=== PATIENT | female | born 2000 | race Caucasian/White ===

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

== ENCOUNTER 2022-06-08 17:56 | Emergency (ER) | payer MEDICAID, SELFPAY ==
[2022-06-08 17:57] VITALS: BP 136/67; PULSE 73; RESP 16; TEMP 36.7; O2SAT 96; BMI 25.7
--- NOTE | 2022-06-08 18:09 | US_ITS ---
EXAM: US , TRANSVAGINAL CLINICAL INDICATION: vaginal bleeding and 1st trimester TECHNIQUE: Real-time transvaginal obstetrical ultrasound of the maternal pelvis and a first trimester with image documentation. Transvaginal imaging was used for better evaluation of the fetus and adnexa. This report was created using kajeet report generation technology. COMPARISON: None. FINDINGS: GESTATION: There is no intrauterine gestation. PLACENTA/AMNIOTIC FLUID: There is no intrauterine gestation. UTERUS/CERVIX: Uterus measures 7.2 x 4.1 x 5.0 cm. The endometrium measures 8 mm. No myometrial mass. OVARIES: The right ovary measures 4.1 x 2.7 x 2.7 cm. The left ovary measures 3.6 x 1.7 x 2.9 cm. No mass. FREE FLUID: There is free fluid in the pelvis. US/Transvaginal w/Preg US IMPRESSION: Free fluid within the pelvis. No other abnormalities are identified. There is no intrauterine gestation. Electronically Signed: Arnold Cote MD at 19:40 EST ,
--- NOTE | 2022-06-08 18:10 | EDS_ITS ---
HPI HPI - Female History of Present Illness Chief Complaint: Vag Bld, Preg Detail of Chief Complaint: Approximately 6 weeks with vaginal bleeding tonight. Mild crampin Informant: patient Pain Pain: Positive for Pelvic Pain Onset: Today Context: Gradual Onset Timing: Intermittent Quality: Positive for Cramping Current Severity: Gone Maximum Severity: Mild Bleeding Issue: Positive for Vaginal bleeding and Passing clots; Negative for Passing tissue Onset: Today Context: Gradual Onset Timing: Intermittent Current Severity: Similar to period Maximum Severity: Similar to period Associated Symptoms Associated Symptoms: Negative for Dysuria or Frequency Test: Positive Sexually: Positive for Active Control: No control P: 1 Ab: 0 Narrative Narrative: 22-year-old female G2, P1 Ab0. Blood type so positive. States about 6 weeks . Started having vaginal bleeding today similar to a menstrual cycle. Clots. Only mild cramping. Currently no pain. No dysuria. No discharge. No fever. She is never had an ectopic. Denies any recent illness or hospitalization. She has had no care as of yet for this . Prior similar symptoms: No Recent Illness/Hospitalization: No PFSH PFSH Medical History (Updated 06/08/22 @ 20:[address] Blaine Dodd MD) IBS (irritable bowel syndrome) Ovarian cyst Home Medications acetaminophen 325 mg tablet (Tylenol) 650 mg PO Q4H PRN PRN Pain Or Fever #0 tabs 11/29/21 [Rx Last Taken Unknown] oxycodone 5 mg tablet 5 mg PO Q4H PRN PRN Pain Score 4-10/10 5 days #14 tabs 11/29/21 [Rx Last Taken Unknown] Allergy/AdvReac Type Severity Reaction Status Date / Time No Known Allergies Allergy Verified 06/08/22 17:58 Surgical History (Updated 06/08/22 @ 18:40 by Barbara Jaquez) History of appendectomy Social History Smoking Status: Never smoker substance use type: does not use ROS ROS ED ROS Narrative Vaginal bleeding. Loose stools. Review of Systems ROS Unobtainable: Denies due to encephalopathy Constitutional Constitutional ED: Denies chills or fever(s) Eyes Eyes: Denies blurry vision ENT ENT ED: Denies ear pain Cardiovascular Cardiovascular: Denies chest pain Respiratory/Chest Respiratory/Chest: Denies cough Gastrointestinal Gastrointestinal: Reports diarrhea; Denies abdominal pain Genitourinary Genitourinary ED: Denies dysuria or hematuria Musculoskeletal Musculoskeletal: Denies arthralgias Integumentary Denies abscess Neurologic Neurologic: Denies headache(s) Psychiatric Psychiatric: Denies anxiety Endocrine Endocrinology: Denies heat intolerance Hematologic/Lymphatic Hematologic/Lymphatic: Denies easy bleeding Allergic/Immunologic Allergic/Immunologic ED: Denies mouth swelling EXAM Physical Exam Narrative Exam Narrative: Well-appearing 22-year-old female. Vital signs stable afebrile. Clinically looks well. Significant other at bedside. HEENT exam normal. Lungs clear. Heart regular rhythm rate about 70 no murmur. Abdomen soft, nontender, nondistended normal bowel sounds no peritoneal signs. No suprapubic tenderness. Moving all 4 extremities. Calves are nontender without edema or cords. Neurologically she is awake and alert with no focal motor deficits. Very benign exam. Const Vital Signs: 06/08/22 17:57 Temperature 98.1 F Temperature Source Temporal Pulse Rate 73 Respiratory Rate 16 Blood Pressure 136/67 H Blood Pressure Mean 90 Pulse Ox 96 Oxygen Delivery Method Room Air Positive well nourished and well developed; Negative for obese, cachectic, contractures or unkempt General Appearance ED: well developed and NAD; Negative for unkempt, cachectic, contractures, odor of alcohol detected or pallor Nutritional Appearance: Negative for cachectic or obese HEENT Reports moist mucous membranes Negative for trauma or tenderness Eyes PERRL and EOMs intact bilaterally General Eye ED: Negative for pale conjunctiva or scleral icterus Neck no lymphadenopathy, supple and no JVD General: Negative for other Thyroid: Negative for tender Chest Wall inspection of chest normal and palpation of chest normal Chest: Negative for other Resp normal respiratory effort and clear to auscultation bilaterally Effort and Inspection: Negative for pain with movement Auscultation: Negative for rales, rhonchi or wheezes Cardio regular rate, regular rhythm, S1 normal heart sound, no murmurs and no JVD Rate: Negative for bradycardia Rhythm: Negative for abnormal rhythm GI normal to inspection, nondistended, normoactive bowel sounds, soft to palpation, non-tender, non-distended and no masses Auscultation: normoactive bowel sounds Palpation: Negative for tender, guarding or rigid Back/Spine no CVA tenderness General Back: Negative for CVA tenderness Cervical Spine: Negative for cervical spine tenderness Thoracic Spine / Upper Back: Negative for thoracic spinal tenderness Lumbar Spine / Lower Back: Negative for lumbar spinal tenderness Sacrum: Negative for other Extremity normal to inspection and full ROM General Extremety ED: Negative for edema or tenderness General Extremity: Negative for edema Neuro oriented x3 and CN's II-XII intact bilaterally Sensorium / Orientation: alert, oriented to person, oriented to place and oriented to time; Negative for confused, lethargic or stuporous Psych mental status grossly normal Appearance: Negative for unkempt Attitude: No agitated Speech: No other Mood & Affect: Negative for depressed, anxious or tearful Skin no rashes or lesions noted and no wounds General Skin Exam: Negative for jaundice or pallor Rashes: No rashes noted MDM MDM MDM Narrative Medical decision making narrative: 22-year old female G2, P1 Ab0. Think she is about 6 weeks . Has had no care. Today had cramping and bleeding. Her blood type in the past is O+ when I reviewed her prior medical records. We will obtain a quant and a pelvic ultrasound. Clinically she does not have an ectopic at least not by exam she is nontender and is having no pain. Currently she needs nothing for pain. She is not lightheaded. She has normal vital signs. Repeat exam at 8:10 PM patient doing well. Abdomen benign. She has had no further bleeding. She deferred pelvic exam. They will follow-up with her MARKETING RESEARCH INTERN this week. We discussed threatened miscarriage versus completed miscarriage versus just an early that she has had some vaginal bleeding. She can follow-up with her MARKETING RESEARCH INTERN office in [place] this week have a repeat quant and further testing is needed. Lab Data Attestation: I reviewed the patient's lab results. Lab results narrative: Quant is only 77. With the ultrasound results it appears the patient's had a miscarriage. Labs: Laboratory Results - last 24 hr 06/08/22 18:15 HCG, Quant 77 H Radiography Diagnostic Testing: Clinical Impression(s) from Imaging Studies Obstetrics Ultrasound 06/08/22 18:09 IMPRESSION: Free fluid within the pelvis. No other abnormalities are identified. There is no intrauterine gestation. Electronically Signed: Arnold Cote MD at 19:40 EST , Discharge Plan Triage Chief Complaint: Vag Bld, Preg ED Provider: Blaine Dodd Dx/Rx/DC Orders Clinical Impression: Threatened miscarriage, Hemorrhage of in first trimester Instructions: ED Possible Miscarriage ... Prescriptions: No Action oxycodone 5 mg Tablet 5 mg PO Q4H PRN PRN (Reason: Pain Score 4-10/10) 5 Days Qty: 14 0RF acetaminophen [Tylenol] 325 mg Tablet 650 mg PO Q4H PRN PRN (Reason: Pain Or Fever) Qty: 0 0RF Primary Care Provider: Care PhysicianVianey Primary Referrals: NOT,DEFINED [Non-Staff] - Activity Restrictions/Additional Instructions: Follow-up with your MARKETING RESEARCH INTERN this week. They can check another serum quantitative hCG and reevaluate you. I suspect you had a early miscarriage there is a possibility that you are still and is just too early to see anything on the ultrasound. You may have some additional bleeding if it is heavy or there is clot you are having severe pain or fever you need to be re- evaluated. Tylenol for pain. Plenty of fluids and rest. Disposition Disposition: Home, Self Care
[2022-06-08 18:41] LABS: hCG Titer Quant., Serum 77 mIU/mL (1-3)
--- NOTE | 2022-06-08 20:20 | EDS_ITS ---
HPI HPI - Female History of Present Illness Chief Complaint: Vag Bld, Preg PFSH PFSH Medical History (Updated 06/08/22 @ 20:[address] Blaine Dodd MD) IBS (irritable bowel syndrome) Ovarian cyst Home Medications acetaminophen 325 mg tablet (Tylenol) 650 mg PO Q4H PRN PRN Pain Or Fever #0 tabs 11/29/21 [Rx Last Taken Unknown] oxycodone 5 mg tablet 5 mg PO Q4H PRN PRN Pain Score 4-10/10 5 days #14 tabs 11/29/21 [Rx Last Taken Unknown] Allergy/AdvReac Type Severity Reaction Status Date / Time No Known Allergies Allergy Verified 06/08/22 17:58 Surgical History (Updated 06/08/22 @ 18:40 by Barbara Jaquez) History of appendectomy Social History Smoking Status: Never smoker substance use type: does not use EXAM Physical Exam Const Vital Signs: 06/08/22 17:57 Temperature 98.1 F Temperature Source Temporal Pulse Rate 73 Respiratory Rate 16 Blood Pressure 136/67 H Blood Pressure Mean 90 Pulse Ox 96 Oxygen Delivery Method Room Air [facility] Lab Data Labs: Laboratory Results - last 24 hr 06/08/22 18:15 HCG, Quant 77 H Radiography Diagnostic Testing: Clinical Impression(s) from Imaging Studies Obstetrics Ultrasound 06/08/22 18:09 IMPRESSION: Free fluid within the pelvis. No other abnormalities are identified. There is no intrauterine gestation. Electronically Signed: Arnold Cote MD at 19:40 EST , Discharge Plan Triage Chief Complaint: Vag Bld, Preg ED Provider: Blaine Dodd Dx/Rx/DC Orders Clinical Impression: Threatened miscarriage, Hemorrhage of in first trimester Instructions: ED Possible Miscarriage ... Prescriptions: No Action oxycodone 5 mg Tablet 5 mg PO Q4H PRN PRN (Reason: Pain Score 4-10/10) 5 Days Qty: 14 0RF acetaminophen [Tylenol] 325 mg Tablet 650 mg PO Q4H PRN PRN (Reason: Pain Or Fever) Qty: 0 0RF Primary Care Provider: Care Physician,No Primary Referrals: NOT,DEFINED [Non-Staff] - Activity Restrictions/Additional Instructions: Follow-up with your ANIMAL RESCUER this week. They can check another serum quantitative hCG and reevaluate you. I suspect you had a early miscarriage there is a possibility that you are still and is just too early to see anything on the ultrasound. You may have some additional bleeding if it is heavy or there is clot you are having severe pain or fever you need to be re- evaluated. Tylenol for pain. Plenty of fluids and rest. Disposition Disposition: Home, Self Care
== END 2022-06-08 20:38 | disposition home or self-care (01) ==
PROVIDERS: Emergency Provider Emergency Medicine; Visit Provider Emergency Medicine
DX: O20.0 Threatened abortion (principal); Z3A.01 Less than 8 weeks gestation of pregnancy; O26.891 Other specified pregnancy related conditions, first trimester
CPT/HCPCS: 76817; 84702; 99282; A4216

== ENCOUNTER 2023-03-28 19:04 | Emergency (ER) | payer MEDICAID, SELFPAY ==
[2023-03-28 19:05] VITALS: BP 131/82; PULSE 86; RESP 14; TEMP 36.2; O2SAT 98; BMI 24.7
--- NOTE | 2023-03-28 19:30 | EDS_ITS ---
HPI History of Present Illness Chief Complaint: Rash Detail of Chief Complaint: Rash Informant: patient Narrative Narrative: Patient presents the emergency department with complaint of a rash that she has had for over 2 weeks. Patient states that she is about 23 weeks . She is G3, P1. Patient denies any new soaps or detergents or other allergens. She tells me that her [employer]IED [employer] thought it might be PUPPS. Patient denies fever or recent illness. Rash is very itchy. Rashes on the hands as well as her wrists and chest. Patient has been using hydrocortisone cream without relief. She is having hard time sleeping at night because of the itching. Patient denies any new medications. [facility] Medical History (Updated 03/28/23 @ 19:[address] Dionna Garcia DO) IBS (irritable bowel syndrome) Ovarian cyst Home Medications acetaminophen 325 mg tablet (Tylenol) 650 mg (2 x 325 mg) PO Q4H PRN PRN Pain Or Fever #0 tabs 11/29/21 [Rx Last Taken Unknown] oxycodone 5 mg tablet 5 mg PO Q4H PRN PRN Pain Score 4-10/10 5 days #14 tabs 11/29/21 [Rx Last Taken Unknown] hydroxyzine HCl 25 mg tablet 25 mg PO Q8H PRN itching #20 tabs 03/28/23 [Rx Last Taken Unknown] prednisone 20 mg tablet 20 mg PO BID #10 tabs 03/28/23 [Rx Last Taken Unknown] Allergy/AdvReac Type Severity Reaction Status Date / Time No Known Allergies Allergy Verified 03/28/23 19:06 Surgical History History of appendectomy Social History Smoking Status: Never smoker substance use type: does not use ROS ROS ED Review of Systems ROS Unobtainable: other Constitutional Constitutional ED: Reports lethargy; Denies chills, fever(s), sweats or weight loss Eyes Eyes: Denies blurry vision, change in vision or diplopia ENT ENT ED: Denies rhinorrhea or sore throat Cardiovascular Cardiovascular: Denies chest pain, orthopnea or racing heartbeat Respiratory/Chest Respiratory/Chest: Denies cough, dyspnea, dyspnea on exertion, orthopnea or sputum Gastrointestinal Gastrointestinal: Denies abdominal pain, diarrhea, nausea or vomiting Genitourinary Genitourinary ED: Denies dysuria, hematuria or urinary frequency Musculoskeletal Musculoskeletal: Denies arthralgias, back pain, myalgias or neck pain Integumentary Reports rash; Denies abscess or Abrasions Neurologic Neurologic: Denies headache(s) or weakness Psychiatric Psychiatric: Denies anxiety, depression or suicidal thoughts Endocrine Endocrinology: Denies polydipsia, polyphagia or polyuria Hematologic/Lymphatic Hematologic/Lymphatic: Denies easy bleeding, easy bruising or lymphadenopathy Allergic/Immunologic Allergic/Immunologic ED: Denies mouth swelling, tongue swelling or urticaria EXAM Physical Exam Const Vital Signs: 03/28/23 19:05 Temperature 97.1 F L Temperature Source Temporal Pulse Rate 86 Respiratory Rate 14 Blood Pressure 131/82 H Blood Pressure Mean 98 Pulse Ox 98 Oxygen Delivery Method Room Air Positive well nourished and well developed General Appearance ED: well developed and NAD HEENT Reports TM's clear and moist mucous membranes normocephalic and atraumatic; Negative for trauma or tenderness Tympanic Membrane ED: Yes TM's clear Eyes PERRL and EOMs intact bilaterally General Eye ED: Negative for pale conjunctiva or scleral icterus Neck no lymphadenopathy, supple and no JVD General: Negative for tenderness Chest Wall inspection of chest normal and palpation of chest normal Chest: Negative for tenderness Resp normal respiratory effort and clear to auscultation bilaterally Effort and Inspection: Negative for respiratory distress or pain with movement Auscultation: Negative for rhonchi, wheezes or diminished lung sounds Cardio regular rate, regular rhythm, S1 normal heart sound, S2 normal heart sound and no murmurs Peripheral Pulses: pulses 2+ throughout GI normal to inspection, nondistended, normoactive bowel sounds, soft to palpation, non-tender, non-distended and no masses Back/Spine no CVA tenderness and no thoracic nor lumbar tenderness Extremity normal to inspection General Extremety ED: Negative for edema General Extremity: Negative for edema Neuro oriented x3, CN's II-XII intact bilaterally, no sensory deficits noted and gait normal Sensorium / Orientation: awake, alert, oriented to person, oriented to place and oriented to time Motor Exam: strength 5/5 throughout and strength abnormal Psych mental status grossly normal Skin no wounds Skin Narrative: Patient has a slightly raised erythematous fine papular rash involving the hands as well as the wrists and forearms. Rash also noted on chest as well as her face. No vesicles or purpura noted. Minimal patches noted on her abdomen. MDM MDM MDM Narrative Medical decision making narrative: Patient with a pruritic fine erythematous rash x2-1/2 weeks. Etiology of rash unclear. We will treat with prednisone and Atarax for itching. Will refer to dermatology for follow-up. Clinically she looks well. Discharge Plan Triage Chief Complaint: Rash ED Provider: Dionna Garcia Dx/Rx/DC Orders Clinical Impression: Rash Instructions: ED Erythema Prescriptions: New prednisone 20 mg tablet 20 mg PO BID Qty: 10 0RF hydroxyzine HCl 25 mg tablet 25 mg PO Q8H PRN (Reason: itching) Qty: 20 0RF No Action oxycodone 5 mg Tablet 5 mg PO Q4H PRN PRN (Reason: Pain Score 4-10/10) 5 Days Qty: 14 0RF acetaminophen [Tylenol] 325 mg Tablet 650 mg PO Q4H PRN PRN (Reason: Pain Or Fever) Qty: 0 0RF Primary Care Provider: Care Physician,No Primary Referrals: Raman Juarez MD [Med Staff - In Process Inspector] - 3-5 Days Care Physician,No Primary [Primary Care Provider] - Disposition Disposition: Home, Self Care Discharge Date/Time: 03/28/23 20:48
[2023-03-28] MEDS: predniSONE 20 MG Tablet PO (19:43)
== END 2023-03-28 20:48 | disposition home or self-care (01) ==
LOC: ED 19:36
PROVIDERS: Emergency Provider Emergency Medicine; Visit Provider Emergency Medicine
DX: O99.891 Other specified diseases and conditions complicating pregnancy (principal); R21 Rash and other nonspecific skin eruption; Z90.49 Acquired absence of other specified parts of digestive tract; Z3A.23 23 weeks gestation of pregnancy
CPT/HCPCS: 99282